=== PATIENT | male | born 1955 | race Caucasian/White ===

== ENCOUNTER 2016-09-12 11:31 | Emergency (ER) | payer MEDICARE, MEDICAID ==
--- NOTE | 2016-09-12 11:48 | ER Document Report ---
ED Medical Screen (RME) - General Stated Complaint: BOTTOM PAIN Notes: 60 yo male c/o pain to buttocks x 3 days. Pt is deaf, nonverbal. No fever - Related Data Allergies/Adverse Reactions: No Known Allergies Allergy (Verified 03/02/14 15:29) Past Medical History - Past Medical History Cardiac Medical History: Denies: Hx Coronary Artery Disease, Hx Heart Attack, Hx Hypertension Pulmonary Medical History: Reports: Hx Asthma, Hx Bronchitis - currently on meds diagnosed 10/24/13, Hx Pneumonia Denies: Hx COPD Neurological Medical History: Denies: Hx Cerebrovascular Accident, Hx Seizures Musculoskeltal Medical History: Denies Hx Arthritis Past Surgical History: Reports: Hx Orthopedic Surgery - neck, bulging disc - Immunizations Hx Diphtheria, Pertussis, Tetanus Vaccination: Yes
--- NOTE | 2016-09-12 12:29 | ER Document Report ---
ED General - General Chief Complaint: Rectal Pain Stated Complaint: BOTTOM PAIN TRAVEL OUTSIDE OF THE [place] IN LAST 30 DAYS: No - HPI Patient complains to provider of: rectal pain Onset: Other - 3 days Onset/Duration: Gradual Quality of pain: No pain Severity: None Associated symptoms: None Exacerbated by: Denies Relieved by: Denies Similar symptoms previously: No Recently seen / treated by doctor: No Notes: Patient is deaf. History of present illness was obtained by writing notes back and forth this states that he has a history of a mass removed from his anus with similar pain but has been hurting approximately 3 days ago. No trauma to the area. No fevers or chills no nausea vomiting or rectal bleeding - Related Data Allergies/Adverse Reactions: No Known Allergies Allergy (Verified 09/12/16 11:47) Past Medical History - Social History Smoking Status: Unknown if Ever Smoked Family History: Reviewed & Not Pertinent - Past Medical History Cardiac Medical History: Denies: Hx Coronary Artery Disease, Hx Heart Attack, Hx Hypertension Pulmonary Medical History: Reports: Hx Asthma, Hx Bronchitis - currently on meds diagnosed 10/24/13, Hx Pneumonia Denies: Hx COPD Neurological Medical History: Denies: Hx Cerebrovascular Accident, Hx Seizures Musculoskeltal Medical History: Denies Hx Arthritis Past Surgical History: Reports: Hx Orthopedic Surgery - neck, bulging disc - Immunizations Hx Diphtheria, Pertussis, Tetanus Vaccination: Yes Review of Systems - Review of Systems Constitutional: No symptoms reported EENT: No symptoms reported Cardiovascular: No symptoms reported Respiratory: No symptoms reported Gastrointestinal: Other - Buttocks pain Genitourinary: No symptoms reported Male Genitourinary: No symptoms reported Musculoskeletal: No symptoms reported Skin: No symptoms reported Hematologic/Lymphatic: No symptoms reported Neurological/Psychological: No symptoms reported Physical Exam - Vital signs Vitals: Temp Pulse Resp BP Pulse Ox 98.3 F 74 16 120/78 100 09/12/16 11:47 09/12/16 11:47 09/12/16 11:47 09/12/16 11:47 09/12/16 11:47 Interpretation: Normal - General General appearance: Appears well, Alert - HEENT Head: Normocephalic, Atraumatic Eyes: Normal Pupils: PERRL - Respiratory Respiratory status: No respiratory distress Chest status: Nontender Breath sounds: Normal Chest palpation: Normal - Cardiovascular Rhythm: Regular Heart sounds: Normal auscultation Murmur: No - Abdominal Inspection: Normal Distension: No distension Bowel sounds: Normal Tenderness: Nontender Organomegaly: No organomegaly - Rectal Hemorrhoids: External - No signs of thrombosis - Back Back: Normal, Nontender - Extremities General upper extremity: Normal inspection, Nontender, Normal color, Normal ROM , Normal temperature General lower extremity: Normal inspection, Nontender, Normal color, Normal ROM , Normal temperature, Normal weight bearing. No: Abbie's sign - Neurological Neuro grossly intact: Yes Cognition: Normal Orientation: AAOx4 Tawanda Coma Scale Eye Opening: Spontaneous Sultana Coma Scale Verbal: Oriented Tawanda Coma Scale Motor: Obeys Commands Sultana Coma Scale Total: 15 Speech: Normal Motor strength normal: LUE, RUE, LLE, RLE Sensory: Normal - Psychological Associated symptoms: Normal affect, Normal mood - Skin Skin Temperature: Warm Skin Moisture: Dry Skin Color: Normal Course - Re-evaluation Re-evalutation: 09/12/16 13:49 Patient with 2 external hemorrhoids more likely this is the cause of the patient 's pain. Otherwise examination is negative. Patient will be discharged home with cream and lidocaine. - Vital Signs Vital signs: Temp Pulse Resp BP Pulse Ox 98.3 F 74 16 120/78 100 09/12/16 11:47 09/12/16 11:47 09/12/16 11:47 09/12/16 11:47 09/12/16 11:47 Discharge - Discharge Clinical Impression: External hemorrhoid Condition: Good Disposition: HOME, SELF-CARE Instructions: Hemorrhoids ([facility]) Additional Instructions: Your examination is consistent with a painful hemorrhoid. Sometimes these require surgery. There is no need for any surgery today. We will treat your pain with hemorrhoid cream to help resolve the hemorrhoid, lidocaine cream to help numb up the hemorrhoid. It is also important that you have very soft stools so I am going to prescribe you a stool softener. Please apply cream as stated. If your pain is not getting better in the next 2- 3 days I recommend contacting the surgeon provided. You may also follow-up with her GI specialist Dr. Skinner for your hemorrhoids Prescriptions: Docusate Sodium [Colace 100 mg Capsule] 100 mg PO BID #60 capsule Hydrocortisone/Pramoxine [Analpram Hc 1% Cream] 30 gm RC TID #1 cream.appl Lidocaine [Recticare] 30 gm TP QID #1 cream..g. Referrals: XIN BOWDEN PA-C [Primary Care Provider] - Follow up in 3-5 days DANIKA JEAN BAPTISTE MD [ACTIVE STAFF] - Follow up as needed HUBERT SKINNER MD [ACTIVE STAFF] - Follow up as needed
[2016-09-12] MEDS ORDERED: PRAMOXINE HCL/MINERAL OIL/ZNOX OINT 28.3 GM PR ONE (12:53)
[2016-09-12] MEDS ORDERED: LIDOCAINE 2% URO-JET 5 ML KIT MM ONE (13:46)
[2016-09-12 14:25] VITALS: BP 121/79
== END 2016-09-12 14:24 | disposition home or self-care (01) ==
LOC: ER 11:31
DX: K64.4 Residual hemorrhoidal skin tags (principal); K62.89 Other specified diseases of anus and rectum; Z98.890 Other specified postprocedural states
CPT/HCPCS: 99283; A9270; J3490

== ENCOUNTER → 2018-06-06 | Outpatient (CLI) | payer MEDICARE, MEDICAID ==
[2018-06-06 12:43] LABS: ABSOLUTE BASOPHILS # (AUTO) 0.1 10^3/uL (0.0-0.2); ABSOLUTE EOSINOPHILS # (AUTO) 0.2 10^3/uL (0.0-0.6); ABSOLUTE LYMPHOCYTES (AUTO) 1.2 10^3/uL (0.5-4.7); ABSOLUTE MONOCYTES (AUTO) 0.5 10^3/uL (0.1-1.4); ABSOLUTE NEUT (AUTO) 4.2 10^3/uL (1.7-8.2); BASOPHILS % (AUTO) 0.9 % (0-2); EOSINOPHILS % (AUTO) 2.9 % (0-6); HEMATOCRIT 38.7 % (37.9-51.0); HEMOGLOBIN 13.2 g/dL (13.5-17.0); LYMPHOCYTES % (AUTO) 20.2 % (13-45); MEAN CORPUSCULAR HEMOGLOBIN 29.9 pg (27.0-33.4); MEAN CORPUSCULAR VOLUME 88 fl (80-97); MONOCYTES % (AUTO) 8.3 % (3-13); PLATELET COUNT 261 10^3/uL (150-450); RED CELL DISTRIBUTION WIDTH 12.8 % (11.5-14.0); SEGMENTED NEUTROPHILS % (AUTO) 67.7 % (42-78); TOTAL CELLS COUNTED % (AUTO) 100 %; WHITE BLOOD COUNT 6.1 10^3/uL (4.0-10.5)
[2018-06-06 13:07] LABS: ALANINE AMINOTRANSFERASE 25 U/L (21-72); ALBUMIN 3.9 g/dL (3.5-5.0); ALKALINE PHOSPHATASE 65 U/L (38-126); ASPARTATE AMINO TRANSFERASE 34 U/L (17-59); BILIRUBIN,DIRECT 0.4 mg/dL (0.0-0.4); BILIRUBIN,TOTAL 0.6 mg/dL (0.2-1.3); BLOOD UREA NITROGEN 19 mg/dL (7-20); C-REACTIVE PROTEIN 11.4 mg/L (<10.0); CALCIUM 9.2 mg/dL (8.4-10.2); CHLORIDE 100 mmol/L (98-107); GLUCOSE 96 mg/dL (75-110); POTASSIUM 4.7 mmol/L (3.6-5.0); TOTAL PROTEIN 7.1 g/dL (6.3-8.2)
[2018-06-06 13:10] LABS: ANION GAP 6 (5-19); CARBON DIOXIDE 34 mmol/L (22-30); SODIUM 139.7 mmol/L (137-145)
[2018-06-06 13:26] LABS: ERYTHROCYTE SEDIMENTATION RATE 37 mm/hr (0-20)
== END ==
LOC: OD 12:06
PROVIDERS: ATTEND Nurse Practitioner
DX: L97.222 Non-pressure chronic ulcer of left calf with fat layer exposed (principal)
CPT/HCPCS: 36415; 80053; 85025; 85652; 86140

== ENCOUNTER → 2018-06-08 | Outpatient (CLI) | payer MEDICARE, MEDICAID ==
--- NOTE | 2018-06-09 08:54 | XCELERA REPORT ---
[address] [address] Lower Extremity Venous Evaluation Procedure: A bilateral duplex scan of the lower extremity veins was performed. The evaluation included responses to compression and other maneuvers with patient in the supine and standing positions to assess venous insufficiency. Right Sided Venous Evaluation Common Femoral vein reflux: none. No other deep vein abnormality. Sapheno Femoral junction: no reflux. Femoral vein reflux: no reflux. Greater Saphenous vein, Proximal thigh: reflux: no reflux. Greater Saphenous vein, Distal thigh: reflux: no reflux. Greater Saphenous vein, Proximal below knee: reflux: no reflux. No significant Perforators identified. Left Sided Venous Evaluation Common Femoral vein reflux: none. No other deep vein abnormality. Sapheno Femoral junction: no reflux. Femoral vein reflux: no reflux. Greater Saphenous vein, Proximal thigh: reflux: no reflux. Greater Saphenous vein, Distal thigh: reflux: no reflux. Greater Saphenous vein, Proximal below knee: reflux: no reflux. No significant Perforators identified. Interpretation Summary No duplex evidence of DVT or obstruction in the bilateral lower extremities. No significant deep or superficial reflux identified. Name: LUCY REDDY Age: 62 yrs Gender: Male : 1955 Patient Status: Outpatient Patient Location: Study Date: 06/08/2018 10:51 AM Reason For Study: ULCER Ordering Physician: FRANTZ PEREZ Performed By: Elio Barry : FRANTZ PEREZ > Howard Jane
--- NOTE | 2018-06-09 08:57 | XCELERA REPORT ---
[address] [address] Lower Extremity Arterial Evaluation Name: LUCY REDDY Age: 62 yrs Gender: Male : 1955 Patient Status: Outpatient Patient Location: Study Date: 06/08/2018 10:31 AM Procedure: A color flow and duplex scan of the lower extremity arteries was performed bilaterally with velocity and waveform anaylsis. Reason For Study: ULCER Ordering Physician: FRANTZ PEREZ Performed By: Elio Barry Measurements and Calculations Right Left ER RN PSV 167.6 160.3 cm/sec Prox PFA PSV -124.3 -82.2 cm/sec Prox SFA PSV 103.7 148.5 cm/sec Mid SFA PSV -141.1 -135.5cm/sec Dist SFA PSV -123.6 -135.5cm/sec Prox Pop A PSV 95.4 95.4 cm/sec Dist CHAR PSV 79.9 111.9 cm/sec Mid AL[employer]IN[employer]SEMBLER PSV 121.9 cm/sec Dist ALUMINUM [employer]ATS ASSEMBLER PSV 106.4 cm/sec Mitul Pedis PSV 69.5 97.8 cm/sec Right Side Arterial Evaluation Normal velocity and triphasic waveforms noted from the Common Femoral artery to the infrageniculate vessels. 0 % stenosis . Ankle Brachial index was not done. Left Side Arterial Evaluation Normal velocity and triphasic waveforms noted from the Common Femoral artery to the infrageniculate vessels. 0 % stenosis . Ankle Brachial index was not done, due to bandaging. Interpretation Summary No hemodynamically significant lesions in the bilateral lower extremities, on duplex imaging, at rest. : FRANTZ PEREZ > Howard Jane
== END ==
LOC: SP 10:02
PROVIDERS: ATTEND Nurse Practitioner
DX: L97.222 Non-pressure chronic ulcer of left calf with fat layer exposed (principal)
CPT/HCPCS: 93925; 93970

== ENCOUNTER 2018-12-07 06:50 | Day surgery (SDC) | payer MEDICARE, MEDICAID ==
[~2018-12-07 06:50] MED LIST: KETOROLAC TROMETHAMINE 0.45% 4 DROP/0.4 ML DROPERETTE OS PRN
[2018-12-07] MEDS ORDERED: LIDOCAINE 1%/PHENYLEPHRINE 1.5% 1 ML VIAL ONE (06:53)
[2018-12-07] MEDS ORDERED: EPINEPHRINE INJ/PF 1 MG/1 ML AMPULE ONE (06:53)
[2018-12-07] MEDS ORDERED: CHONDR SU A NA/HYALUR INTRAOC KIT (SURGICARE) ONE (06:54)
[2018-12-07] MEDS: TROPICAMIDE 1% OPH SOLN 3 ML OS PRN ×3 (07:01→07:19)
[2018-12-07] MEDS: CYCLOPENTOLATE 0.2%/PHENYLEPHRINE 1% OPH SOLN 2 ML OS PRN ×3 (07:01→07:19)
[2018-12-07] MEDS: BESIFLOXACIN HCL 0.6% OPH SUSP 5 ML BOTTLE OS PRN ×4 (07:09→08:12)
[2018-12-07] MEDS: TETRACAINE HCL 0.5% OPH SOLN 4 ML OS PRN ×3 (07:09→07:30)
[2018-12-07] MEDS ORDERED: MIDAZOLAM 2 MG/2 ML INJ ONE (07:11)
[2018-12-07] MEDS ORDERED: LIDOCAINE 2% INJ (20 MG/ML) 20 ML MDV ONE (07:33)
[2018-12-07] MEDS ORDERED: CHONDR SU A NA/HYALUR SOD 0.5 ML DISP.SYRIN ONE (07:46)
[2018-12-07] MEDS: DORZOLAMIDE HCL 2%/TIMOLOL MALEAT 0.5% OPH SOLN 10 ML OS PRN ×2 (08:12)
--- NOTE | 2018-12-07 14:24 | [facility] OPERATIVE REPORT E ---
[facility] Operative Report NAME: LUCY REDDY AGE: 63Y DATE OF SURGERY: 12/07/2018 ROOM: PREOPERATIVE DIAGNOSIS: CATARACT, LEFT EYE. POSTOPERATIVE DIAGNOSIS: CATARACT, LEFT EYE. OPERATION: Cataract extraction with insertion of an IOL of the left eye. SURGEON: JOSE MRATINEZ M.D. ANESTHESIA: Topical. PROCEDURE: After obtaining appropriate consent, the patient's left eye was prepped and draped in sterile fashion as well as the surgeon in a sterile manner and cataract surgery was started. First a paracentesis blade was used to make a side-port incision. Viscoelastic was used to inflate the anterior chamber. Next a 2.4 mm incision was made with a 2.4 mm blade, clear corneal temporally. A continuous capsulorrhexis was made using a cystotome and Utrata forceps. Following this hydrodissection was carried out to make the lens fully loose and mobile and it was rotated 90 degrees. Following this, a iwnngg-vto-yckvkhb technique was used to phacoemulsify the lens with a CDE of 7.61. The remaining cortex was removed with irrigation/aspiration. Provisc was instilled into the capsular bag to inflate the bag. A [id number], 0.0 diopter lens was placed. The remaining viscoelastic material was removed with irrigation/aspiration. Following this, the incision was found to be watertight. Besivance was instilled into the eye and a protective shield was placed over the eye. The patient returned to the postoperative recovery in stable condition. DICTATING PHYSICIAN: JOSE MARTINEZ M.D. [id number] PHY#: [id number] ID: [id number] JOB#: [id number] ACCT: [id number] cc:JOSE MARTINEZ M.D. >
--- NOTE | 2018-12-07 14:29 | [facility] DISCHARGE SUMMARY E ---
[facility] Discharge Summary NAME: LUCY REDDY AGE: 63Y ADMITTED: 12/07/2018 DISCHARGED: 12/07/2018 FINAL DIAGNOSIS: CATARACT, LEFT EYE. HISTORY/CLINIC COURSE: This is a 63-year-old male who underwent cataract extraction of left eye. He underwent surgery because he was having increased glare from headlights at night and he had monocular diplopia. He should be on a regular diet. No bending at the waist, no heavy lifting. Patient should use the Vigamox, ketorolac, and Durezol at 3 p.m. and 8 p.m., and sleep with a rigid shield. I will see him for 1 day postoperative tomorrow. DICTATING PHYSICIAN: JOSE MARTINEZ M.D. [id number] PHY#: [id number] ID: [id number] JOB#: [id number] ACCT: [id number] cc:JOSE MARTINEZ M.D. > MTDD
== END 2018-12-07 09:04 | disposition home or self-care (01) ==
LOC: SC 06:50
PROVIDERS: ATTEND Internal Medicine
DX: H25.13 Age-related nuclear cataract, bilateral (principal); H18.603 Keratoconus, unspecified, bilateral; H04.123 Dry eye syndrome of bilateral lacrimal glands; K21.9 Gastro-esophageal reflux disease without esophagitis; Z79.899 Other long term (current) drug therapy
CPT/HCPCS: 66984; V2630; J2250; J3490 ×4; A9270; J0171; J2370; 142

== ENCOUNTER 2018-12-28 06:19 | Day surgery (SDC) | payer MEDICARE, MEDICAID ==
[~2018-12-28 06:19] MED LIST changes: +KETOROLAC TROMETHAMINE 0.45% 4 DROP/0.4 ML DROPERETTE OD PRN; -KETOROLAC TROMETHAMINE 0.45% 4 DROP/0.4 ML DROPERETTE OS PRN
[2018-12-28] MEDS ORDERED: MIDAZOLAM 2 MG/2 ML INJ ONE (06:40)
[2018-12-28] MEDS: TROPICAMIDE 1% OPH SOLN 3 ML OD PRN ×3 (06:50→07:10)
[2018-12-28] MEDS: CYCLOPENTOLATE 0.2%/PHENYLEPHRINE 1% OPH SOLN 2 ML OD PRN ×3 (06:50→07:10)
[2018-12-28] MEDS: TETRACAINE HCL 0.5% OPH SOLN 4 ML OD PRN ×4 (06:50→07:33)
[2018-12-28] MEDS: BESIFLOXACIN HCL 0.6% OPH SUSP 5 ML BOTTLE OD PRN ×4 (06:51→07:57)
[2018-12-28] MEDS: EPINEPHRINE INJ/PF 1 MG/1 ML AMPULE ONE ×2 (07:41)
[2018-12-28] MEDS: CHONDR SU A NA/HYALUR INTRAOC KIT (SURGICARE) ONE ×2 (07:41)
[2018-12-28] MEDS: LIDOCAINE 1%/PHENYLEPHRINE 1.5% 1 ML VIAL ONE ×2 (07:41)
[2018-12-28] MEDS: DORZOLAMIDE HCL 2%/TIMOLOL MALEAT 0.5% OPH SOLN 10 ML OD PRN ×2 (07:57)
--- NOTE | 2018-12-29 08:40 | [facility] DISCHARGE SUMMARY E ---
[facility] Discharge Summary NAME: LUCY REDDY AGE: 63Y ADMITTED: 12/28/2018 DISCHARGED: 12/28/2018 DIAGNOSIS: CATARACT, RIGHT EYE. SUMMARY: This is a 63-year-old male who underwent cataract extraction, right eye. He underwent surgery because he was having trouble seeing small print and glare from headlights at night. DISCHARGE INSTRUCTIONS: He should be on a regular diet, no bending at his waist, and no heavy lifting. He should use Durezol, Ilevro, and Vigamox at 3 p.m. and 8 p.m. and sleep with a rigid shield. I will see him for his 1-day postoperative tomorrow. DICTATING PHYSICIAN: JOSE MARTINEZ M.D. [id number] PHY#: [id number] ID: [id number] JOB#: [id number] ACCT: [id number] cc:JOSE MARTINEZ M.D. >
--- NOTE | 2018-12-29 08:40 | [facility] OPERATIVE REPORT E ---
[facility] Operative Report NAME: LUCY REDDY AGE: 63Y DATE OF SURGERY: 12/28/2018 ROOM: PREOPERATIVE DIAGNOSIS: CATARACT, RIGHT EYE. POSTOPERATIVE DIAGNOSIS: CATARACT, RIGHT EYE. OPERATION: Cataract extraction with insertion of an IOL of the right eye. SURGEON: JOSE MARTINEZ M.D. ANESTHESIA: Topical. PROCEDURE: After obtaining appropriate consent, the patient's right eye was prepped and draped in sterile fashion as well as the surgeon in a sterile manner and cataract surgery was started. First a paracentesis blade was used to make a side-port incision. Viscoelastic was used to inflate the anterior chamber. Next a 2.4 mm incision was made with a 2.4 mm blade, clear corneal temporally. A continuous capsulorrhexis was made using a cystotome and Utrata forceps. Following this hydrodissection was carried out to make the lens fully loose and mobile and it was rotated 90 degrees. Following this, a vhvgca-xrq-lwvsvcl technique was used to phacoemulsify the lens with a CDE of 6.25. The remaining cortex was removed with irrigation/aspiration. Provisc was instilled into the capsular bag to inflate the bag. A SN60WF, 13.0 diopter lens was placed. The remaining viscoelastic material was removed with irrigation/aspiration. Following this, the incision was found to be watertight. Besivance was instilled into the eye and a protective shield was placed over the eye. The patient returned to the postoperative recovery in stable condition. DICTATING PHYSICIAN: JOSE MARTINEZ M.D. [id number] PHY#: [id number] ID: [id number] JOB#: [id number] ACCT: [id number] cc:JOSE MARTINEZ M.D. >
== END 2018-12-28 08:40 | disposition home or self-care (01) ==
LOC: SC 06:19
PROVIDERS: ATTEND Internal Medicine
DX: H25.11 Age-related nuclear cataract, right eye (principal); Z96.1 Presence of intraocular lens; H18.603 Keratoconus, unspecified, bilateral; K21.9 Gastro-esophageal reflux disease without esophagitis; Z79.899 Other long term (current) drug therapy; Z75.1 Person awaiting admission to adequate facility elsewhere
CPT/HCPCS: 66984; V2632; J2250; J3490 ×2; A9270; J0171; J2370; 142

== ENCOUNTER 2019-01-24 19:27 | Emergency (ER) | payer MEDICARE, MEDICAID ==
--- NOTE | 2019-01-24 20:23 | ER Document Report ---
ED Medical Screen (RME) - General Chief Complaint: Abdominal Pain Stated Complaint: ABDOMINAL PAIN Time Seen by Provider: 01/24/19 20:21 Primary Care Provider: ANG CHAPMAN PA-C [Primary Care Provider] - Follow up as needed Mode of Arrival: Ambulatory Information source: Patient, Relative TRAVEL OUTSIDE OF THE [place] IN LAST 30 DAYS: No - HPI Patient complains to provider of: ABDO PAIN Notes: 01/24/19 20:22 Patient here with complaints of abdominal pain. Pain started on the right and is now on the left lower quadrant. Seen in urgent care and sent here for evaluation. Family member at the bedside to facilitate communication via sign language. Exam No distress, nontoxic-appearing. Left lower quadrant tenderness to palpation on limited triage abdominal exam. Plan CBC, CMP, lipase, urine, saline lock, CT abdomen pelvis with IV contrast. An initial examination was made on the patient as part of the triage process, and it was determined a more comprehensive evaluation was necessary. Initial labs were ordered and patient was transferred to another provider in the ED who assumed care and finished evaluation and plan. - Related Data Allergies/Adverse Reactions: No Known Allergies Allergy (Verified 12/27/18 09:06) Past Medical History - Past Medical History Cardiac Medical History: Denies: Hx Coronary Artery Disease, Hx Heart Attack, Hx Hypertension Pulmonary Medical History: Reports: Hx Asthma, Hx Bronchitis - currently on meds diagnosed 10/24/13, Hx Pneumonia Denies: Hx COPD Neurological Medical History: Denies: Hx Cerebrovascular Accident, Hx Seizures GI Medical History: Denies: Hx Hepatitis, Hx Hiatal Hernia, Hx Ulcer Musculoskeltal Medical History: Denies Hx Arthritis Infectious Medical History: Denies: Hx Hepatitis Past Surgical History: Reports: Hx Orthopedic Surgery - neck, bulging disc. Denies: Hx Open Heart Surgery, Hx Pacemaker - Immunizations Hx Diphtheria, Pertussis, Tetanus Vaccination: Yes Physical Exam - Vital signs Vitals: Temp Pulse Resp BP Pulse Ox 98.3 F 79 20 131/77 H 94 01/24/19 20:01 01/24/19 20:01 01/24/19 20:01 01/24/19 20:01 01/24/19 20:01 Course - Vital Signs Vital signs: Temp Pulse Resp BP Pulse Ox 98.3 F 79 20 131/77 H 94 01/24/19 20:01 01/24/19 20:01 01/24/19 20:01 01/24/19 20:01 01/24/19 20:01 Doctor's Discharge - Discharge Referrals: ANG CHAPMAN PA-C [Primary Care Provider] - Follow up as needed
[2019-01-24 21:53] LABS: ABSOLUTE EOSINOPHILS # (AUTO) 0.2 10^3/uL (0.0-0.6); ABSOLUTE LYMPHOCYTES (AUTO) 1.3 10^3/uL (0.5-4.7); ABSOLUTE MONOCYTES (AUTO) 0.8 10^3/uL (0.1-1.4); ABSOLUTE NEUT (AUTO) 4.8 10^3/uL (1.7-8.2); BASOPHILS % (AUTO) 0.5 % (0-2); EOSINOPHILS % (AUTO) 3.4 % (0-6); HEMATOCRIT 40.2 % (37.9-51.0); HEMOGLOBIN 13.5 g/dL (13.5-17.0); LYMPHOCYTES % (AUTO) 18.7 % (13-45); MEAN CORPUSCULAR HEMOGLOBIN 30.2 pg (27.0-33.4); MEAN CORPUSCULAR HGB CONC 33.6 g/dL (32.0-36.0); MEAN CORPUSCULAR VOLUME 90 fl (80-97); MONOCYTES % (AUTO) 11.4 % (3-13); PLATELET COUNT 284 10^3/uL (150-450); RED BLOOD COUNT 4.48 10^6/uL (4.35-5.55); RED CELL DISTRIBUTION WIDTH 12.8 % (11.5-14.0); TOTAL CELLS COUNTED % (AUTO) 100 %; WHITE BLOOD COUNT 7.2 10^3/uL (4.0-10.5)
[2019-01-24 22:13] LABS: ALANINE AMINOTRANSFERASE 24 U/L (21-72); ALKALINE PHOSPHATASE 92 U/L (38-126); ANION GAP 8 (5-19); ASPARTATE AMINO TRANSFERASE 36 U/L (17-59); BILIRUBIN,DIRECT 0.4 mg/dL (0.0-0.4); BILIRUBIN,TOTAL 0.7 mg/dL (0.2-1.3); BLOOD UREA NITROGEN 20 mg/dL (7-20); CALCIUM 9.4 mg/dL (8.4-10.2); CARBON DIOXIDE 35 mmol/L (22-30); CHLORIDE 100 mmol/L (98-107); GLUCOSE 112 mg/dL (75-110); LIPASE 167.7 U/L (23-300); SODIUM 142.7 mmol/L (137-145); TOTAL PROTEIN 7.2 g/dL (6.3-8.2)
[2019-01-25 00:54] LABS: APPEARANCE,URINE SLIGHTLY-CLOUDY; BILIRUBIN,URINE NEGATIVE (NEGATIVE); COLOR,URINE AMBER; GLUCOSE, URINE NEGATIVE (NEGATIVE); KETONES,URINE NEGATIVE (NEGATIVE); LEUKOCYTE ESTERASE,URINE NEGATIVE (NEGATIVE); NITRITE,URINE NEGATIVE (NEGATIVE); PROTEIN,URINE NEGATIVE (NEGATIVE); URINE SPECIFIC GRAVITY 1.031
--- NOTE | 2019-01-25 01:09 | RADIOLOGY REPORT (SQ) ---
CT ABDOMEN PELVIS WITH IV CONTRAST HISTORY: Left lower quadrant pain. COMPARISON: None. TECHNIQUE: CT scan of the abdomen and pelvis was performed with IV contrast. This exam was performed according to our departmental dose-optimization program, which includes automated exposure control, adjustment of the mA and/or kV according to patient size and/or use of iterative reconstruction technique. Motion artifact limits evaluation. FINDINGS: The lung bases are clear. No pleural or pericardial effusions. There is no hiatal hernia. The liver, spleen, pancreas, gallbladder, adrenal glands, and kidneys are unremarkable. No urinary stones are seen. The pelvic organs are also unremarkable. No small bowel obstruction. The appendix is normal. There is no evidence of diverticulitis. No intraperitoneal free fluid or free air is identified. The aorta is normal caliber. No acute osseous findings are appreciated. There is no pathologic body wall hernia. IMPRESSION: 1. No acute abdominal or pelvic pathology. 2. Please note the gallbladder is contracted which limits evaluation. Consider gallbladder ultrasound if there is high clinical concern.
[2019-01-25] MEDS ORDERED: NORMAL SALINE 1000 ML 1,000 ML IV ONE (02:01)
[2019-01-25] MEDS ORDERED: ONDANSETRON HCL INJ/PF 4 MG/2 ML SDV IV ONE (02:01)
[2019-01-25] MEDS ORDERED: KETOROLAC TROMETHAMINE INJ/PF 30 MG/1 ML SDV IV ONE (02:01)
[2019-01-25 03:18] VITALS: BP 112/71
--- NOTE | 2019-01-25 03:24 | ER Document Report ---
ED GI/ - General Chief Complaint: Abdominal Pain Stated Complaint: ABDOMINAL PAIN Time Seen by Provider: 01/24/19 20:21 Primary Care Provider: ANG CHAPMAN PA-C [Primary Care Provider] - Follow up as needed Mode of Arrival: Ambulatory Notes: Patient is a 63 year old male that comes to the Emergency Department for chief complaint of left lower quadrant abdominal pain. He states he has had this intermittently for about 1 week now. He denies vomiting, nausea, fever, difficulty eating, and he had a bowel movement that appeared normal about 15 minutes before I evaluated the patient. He he denies any abdominal surgeries. He denies dysuria, flank pain. Past medical history of CAD with stent, orthopedic surgery, asthma, deafness, cerebral palsy. TRAVEL OUTSIDE OF THE [place] IN LAST 30 DAYS: No - Related Data Allergies/Adverse Reactions: No Known Allergies Allergy (Verified 12/27/18 09:06) Past Medical History - General Information source: Patient, Relative - Social History Smoking Status: Never Smoker Frequency of alcohol use: Occasional Drug Abuse: None Lives with: Family Family History: Reviewed & Not Pertinent Patient has suicidal ideation: No Patient has homicidal ideation: No - Past Medical History Cardiac Medical History: Denies: Hx Coronary Artery Disease, Hx Heart Attack, Hx Hypertension Pulmonary Medical History: Reports: Hx Asthma, Hx Bronchitis - currently on meds diagnosed 10/24/13, Hx Pneumonia Denies: Hx COPD Neurological Medical History: Denies: Hx Cerebrovascular Accident, Hx Seizures Renal/ Medical History: Denies: Hx Peritoneal Dialysis GI Medical History: Denies: Hx Hepatitis, Hx Hiatal Hernia, Hx Ulcer Musculoskeletal Medical History: Denies Hx Arthritis Infectious Medical History: Denies: Hx Hepatitis Past Surgical History: Reports: Hx Cardiac Catheterization - stent, Hx Neurologic Surgery - cervical surgery, Hx Orthopedic Surgery - neck, bulging disc. Denies: Hx Open Heart Surgery, Hx Pacemaker - Immunizations Hx Diphtheria, Pertussis, Tetanus Vaccination: Yes Review of Systems - Review of Systems Constitutional: No symptoms reported EENT: No symptoms reported Cardiovascular: No symptoms reported Respiratory: No symptoms reported Gastrointestinal: See HPI Genitourinary: No symptoms reported Male Genitourinary: No symptoms reported Musculoskeletal: No symptoms reported Skin: No symptoms reported Hematologic/Lymphatic: No symptoms reported Neurological/Psychological: No symptoms reported Physical Exam - Vital signs Vitals: Temp Pulse Resp BP Pulse Ox 98.3 F 79 20 131/77 H 94 01/24/19 20:01 01/24/19 20:01 01/24/19 20:01 01/24/19 20:01 01/24/19 20:01 - Notes Notes: GENERAL: Sleeping and easily aroused. Alert, interacts well. No acute distress. HEAD: Normocephalic, atraumatic. EYES: Pupils equal, round, and reactive to light. Extraocular movements intact. ENT: Oral mucosa moist, tongue midline. Oropharynx unremarkable. Airway patent. NECK: Full range of motion. Supple. Trachea midline. LUNGS: Clear to auscultation bilaterally, no wheezes, rales, or rhonchi. No respiratory distress. HEART: Regular rate and rhythm. No murmur ABDOMEN: Mild generalized tenderness in the left mid to lower abdomen, nonspecific, no guarding. Otherwise unremarkable exam. Bowel movements present in all quadrants. GENITOURINARY: No swelling, erythema, tenderness, or concerning a normality. EXTREMITIES: Moves all 4 extremities spontaneously. No edema, normal radial and dorsalis pedis pulses bilaterally. No cyanosis. BACK: no cervical, thoracic, lumbar midline tenderness. No saddle anesthesia, normal distal neurovascular exam. NEUROLOGICAL: Alert and oriented x3. Normal speech. Generalized jerking mov ements which is reported to be patient's baseline with cerebral palsy. PSYCH: Normal affect, normal mood. SKIN: Warm, dry, normal turgor. No rashes or lesions noted. Course - Re-evaluation Re-evalutation: Patient sleeping but easily aroused. He does have some mild left lower quadrant tenderness on exam, no guarding, he is smiling, talkative, well-appearing. Unremarkable vital signs. CBC, chemistry, urinalysis reviewed and show some dehydration with elevated specific gravity, but otherwise this is nonspecific. CAT scan of the abdomen/pelvis with IV contrast was reviewed and shows no concerning acute abnormality. Gallbladder contracted on the CAT scan but patient has no right upper quadrant or even generalized upper abdominal tenderness. There does appear to be a lot of stool in the lower part of the colon. Patient is still moving his bowels however. Patient still reporting some intermittent discomfort. After IV fluids, nausea medication, Toradol, patient symptoms completely resolved. He states he feels great. Does not appear to be diverticulitis, abscess, or acute abdomen based on his evaluation. Patient will be treated with stool softener, symptom management, discussed follow-up and return precautions in detail, patient and state satisfaction and agreement with plan. - Vital Signs Vital signs: Temp Pulse Resp BP Pulse Ox 97.9 F 67 16 112/71 96 01/25/19 03:16 01/25/19 03:16 01/25/19 03:16 01/25/19 03:16 01/25/19 03:16 - Laboratory Result Diagrams: 01/24/19 21:25 01/24/19 21:25 Laboratory results interpreted by me: 01/24/19 01/25/19 21:25 00:28 Carbon Dioxide 35 H Glucose 112 H Urine Urobilinogen 4.0 H Discharge - Discharge Clinical Impression: Dehydration Abdominal pain Qualifiers: Abdominal location: generalized Qualified Code(s): R10.84 - Generalized abdominal pain Condition: Stable Disposition: HOME, SELF-CARE Additional Instructions: Your tests here indicate dehydration and some constipation, but no other concerning findings were seen today. Take the colace stool softener for the next several days, the Zofran if needed for nausea, and the Bentyl if needed for abdominal pain. Increase drinking fluids, increase fiber in your diet. Follow up with your primary care. Come back if you are worse (if your pain in your abdomen comes back or is worse, you get a fever, you start vomiting, or if something else is not right). Prescriptions: Dicyclomine HCl [Bentyl 20 mg Tablet] 20 mg PO QID PRN #20 tablet PRN Reason: Docusate Sodium [Colace 100 mg Capsule] 100 mg PO ASDIR PRN #30 capsule PRN Reason: Ondansetron [Zofran Odt 4 mg Tablet] 1 - 2 tab PO Q4H PRN #15 tab.rapdis PRN Reason: For Nausea/Vomiting Referrals: ANG CHAPMAN PA-C [Primary Care Provider] - Follow up as needed
== END 2019-01-25 03:30 | disposition home or self-care (01) ==
LOC: ER 19:27
DX: E86.0 Dehydration (principal); R10.32 Left lower quadrant pain; R10.84 Generalized abdominal pain
CPT/HCPCS: 99284; 96361; 96374; 96375; 36415; 83690; 85025; 80053; 81001; 74177; J1885; J2405; J7030

== ENCOUNTER 2019-06-07 23:36 | Emergency (ER) | payer MEDICARE, MEDICAID ==
--- NOTE | 2019-06-07 23:56 | ER Document Report ---
ED Medical Screen (RME) - General Stated Complaint: FALL,LACERATION IN HEAD Time Seen by Provider: 06/07/19 23:44 Primary Care Provider: ANG CHAPMAN PA-C [Primary Care Provider] - Follow up as needed Mode of Arrival: Ambulatory Information source: Patient, Relative - Notes: Patient is a 63-year-old deaf male presenting with a laceration and head injury. Patient's states that he fell out of the bed at approximately 1 AM which was approximately 24 hours ago and hit his head on some type of a hard object. She denies him passing out or losing consciousness, she denies any vomiting. He is in need of a tetanus shot. Allegedly he went to an urgent care in [place] who directed him to come to the emergency department for imaging. Exam: Laceration noted to right forehead area with ecchymosis surrounding this. I have greeted and performed a rapid initial assessment of this patient. A comprehensive ED assessment and evaluation of the patient, analysis of test results and completion of the medical decision making process will be conducted by additional ED providers. I have specifically instructed the patient or family members with the patient to immediately return to any nursing staff should anything change in the patient's condition or with their chief complaint. This medical record was dictated with voice recognizing software. There may be grammatical, syntax errors that are unintended. TRAVEL OUTSIDE OF THE [place] IN LAST 30 DAYS: No - Related Data Allergies/Adverse Reactions: No Known Allergies Allergy (Verified 12/27/18 09:06) Past Medical History - Past Medical History Cardiac Medical History: Denies: Hx Coronary Artery Disease, Hx Heart Attack, Hx Hypertension Pulmonary Medical History: Reports: Hx Asthma, Hx Bronchitis - currently on meds diagnosed 10/24/13, Hx Pneumonia Denies: Hx COPD Neurological Medical History: Denies: Hx Cerebrovascular Accident, Hx Seizures Renal/ Medical History: Denies: Hx Peritoneal Dialysis GI Medical History: Denies: Hx Hepatitis, Hx Hiatal Hernia, Hx Ulcer Musculoskeltal Medical History: Denies Hx Arthritis Infectious Medical History: Denies: Hx Hepatitis Past Surgical History: Reports: Hx Cardiac Catheterization - stent, Hx Neurologic Surgery - cervical surgery, Hx Orthopedic Surgery - neck, bulging disc. Denies: Hx Open Heart Surgery, Hx Pacemaker - Immunizations Hx Diphtheria, Pertussis, Tetanus Vaccination: Yes Physical Exam - Vital signs Vitals: Temp Pulse Resp BP Pulse Ox 98.2 F 65 20 130/70 H 95 06/07/19 23:39 06/07/19 23:39 06/07/19 23:39 06/07/19 23:39 06/07/19 23:39 Course - Vital Signs Vital signs: Temp Pulse Resp BP Pulse Ox 98.2 F 65 20 130/70 H 95 06/07/19 23:39 06/07/19 23:39 06/07/19 23:39 06/07/19 23:39 06/07/19 23:39 Doctor's Discharge - Discharge Referrals: ANG CHAPMAN PA-C [Primary Care Provider] - Follow up as needed
--- NOTE | 2019-06-08 00:58 | RADIOLOGY REPORT (SQ) ---
EXAM DESCRIPTION: CT HEAD WITHOUT IV CONTRAST COMPLETED DATE/TME: 06/07/2019 23:52 CLINICAL HISTORY: 63 years, Male, fall, laceration above R eye COMPARISON: None. TECHNIQUE: 208 Images stored on PACS. All CT scanners at this facility use dose modulation, iterative reconstruction, and/or weight based dosing when appropriate to reduce radiation dose to as low as reasonably achievable (ALARA). [facility]: Dose Right [facility]: CareDose [facility]: Dose Right [facility]: Teradose 4D [facility]: [employer] LIMITATIONS: None. FINDINGS: The globes are intact. The paranasal sinuses and mastoid air cells are unremarkable. No displaced or depressed skull fracture. Small right frontal scalp contusion. No acute intracranial hemorrhage. CT is limited for evaluation of acute infarct. No CT evidence for large or territorial acute infarct. No mass. No midline shift IMPRESSION: Small right frontal scalp contusion. No acute intracranial abnormality TECHNICAL DOCUMENTATION: Quality ID # 436: Final reports with documentation of one or more dose reduction techniques (e.g., Automated exposure control, adjustment of the mA and/or kV according to patient size, use of iterative reconstruction technique) copyright 2010 [employer] All Rights Reserved
[2019-06-08] MEDS ORDERED: ACETAMINOPHEN 325 MG TABLET PO ONE (02:33)
[2019-06-08] MEDS ORDERED: DIPH/PERTUSS(ACELL)/TETANUS VAC/PF 0.5 ML SYR (>=10YO) IM ONE (02:33)
--- NOTE | 2019-06-08 02:43 | ER Document Report ---
ED Fall - General Chief Complaint: Fall Injury Stated Complaint: FALL,LACERATION IN HEAD Time Seen by Provider: 06/07/19 23:44 Primary Care Provider: ANG CHAPMAN PA-C [Primary Care Provider] - Follow up as needed Mode of Arrival: Ambulatory Information source: Patient, Relative - Notes: Patient is a 63-year-old deaf male presenting with a laceration and head injury. Patient's states that he fell out of the bed at approximately 1 AM which was approximately 24 hours ago and hit his head on some type of a hard object. She denies him passing out or losing consciousness, she denies any vomiting. He is in need of a tetanus shot. Allegedly he went to an urgent care in [place] who directed him to come to the emergency department for imaging. I have used [employer] fiber design engineer to discuss patient's HPI. Upon my assessment patient states he has some minor pain in the right side of his head but otherwise has no complaints. Patient voices he accidentally rolled out of bed. Feels he thinks he had a nightmare. Patient did hit the right side of his head on the ground, is denying any loss of consciousness or vomiting. Does have a hematoma with a small abrasion noted to the right forehead. No pain upon palpation right supraorbital or zygomatic arches. Extraocular motion intact and painless. TRAVEL OUTSIDE OF THE [place] IN LAST 30 DAYS: No - Related data Allergies/Adverse Reactions: No Known Allergies Allergy (Verified 12/27/18 09:06) Past Medical History - General Information source: Patient, Relative - - Social History Smoking Status: Never Smoker Chew tobacco use (# tins/day): No Frequency of alcohol use: Occasional Drug Abuse: None Family History: Reviewed & Not Pertinent Patient has suicidal ideation: No Patient has homicidal ideation: No - Past Medical History Cardiac Medical History: Denies: Hx Coronary Artery Disease, Hx Heart Attack, Hx Hypertension Pulmonary Medical History: Reports: Hx Asthma, Hx Bronchitis - currently on meds diagnosed 10/24/13, Hx Pneumonia Denies: Hx COPD Neurological Medical History: Denies: Hx Cerebrovascular Accident, Hx Seizures Renal/ Medical History: Denies: Hx Peritoneal Dialysis GI Medical History: Denies: Hx Hepatitis, Hx Hiatal Hernia, Hx Ulcer Musculoskeletal Medical History: Denies Hx Arthritis Infectious Medical History: Denies: Hx Hepatitis Past Surgical History: Reports: Hx Cardiac Catheterization - stent, Hx Neurologic Surgery - cervical surgery, Hx Orthopedic Surgery - neck, bulging disc. Denies: Hx Open Heart Surgery, Hx Pacemaker - Immunizations Hx Diphtheria, Pertussis, Tetanus Vaccination: Yes Review of Systems - Review of Systems Constitutional: denies: Fever EENT: See HPI Cardiovascular: No symptoms reported Respiratory: No symptoms reported Gastrointestinal: No symptoms reported Genitourinary: No symptoms reported Male Genitourinary: No symptoms reported Musculoskeletal: No symptoms reported Skin: See HPI Hematologic/Lymphatic: No symptoms reported Neurological/Psychological: See HPI Physical Exam - Vital signs Vitals: Temp Pulse Resp BP Pulse Ox 98.2 F 65 20 130/70 H 95 06/07/19 23:39 06/07/19 23:39 06/07/19 23:39 06/07/19 23:39 06/07/19 23:39 - Notes Notes: GENERAL: Alert, interacts well. No acute distress. HEAD: Normocephalic, hematoma noted right forehead, overlying abrasion. EYES: Pupils equal, round, and reactive to light. Extraocular movements intact. ENT: Oral mucosa moist, tongue midline. Nares patent, no nasal septal hematoma, TM's intact, no hemotympanum noted bilaterally. NECK: Full range of motion. Supple. Trachea midline. LUNGS: Clear to auscultation bilaterally, no wheezes, rales, or rhonchi. No respiratory distress. HEART: Regular rate and rhythm. No murmur ABDOMEN: Soft, non-tender. Non-distended. Bowel sounds present in all 4 quadrants. EXTREMITIES: Moves all 4 extremities spontaneously. No edema, normal radial and dorsalis pedis pulses bilaterally. No cyanosis. BACK: no cervical, thoracic, lumbar midline tenderness. No saddle anesthesia, normal distal neurovascular exam. NEUROLOGICAL: Alert and oriented x3. cranial nerves II through XII grossly intact PSYCH: Normal affect, normal mood. SKIN: Warm, dry, normal turgor. Course - Re-evaluation Re-evalutation: 06/08/19 02:[address] 06/07/19 23:52 IMPRESSION: Small right frontal scalp contusion. No acute intracranial abnormality TECHNICAL DOCUMENTATION: Quality ID # 436: Final reports with documentation of one or more dose reduction techniques (e.g., Automated exposure control, adjustment of the mA and/or kV according to patient size, use of iterative reconstruction technique) copyright 2010 [employer]- All Rights Reserved Patient voices his tetanus status is unknown. Discussed close follow-up with primary care provider. Nonsuturable abrasion overlying hematoma noted right forehead. Patient stable for discharge At this time will discharge with return precautions and follow-up recommendations. Verbal discharge instructions given a the bedside and opportunity for questions given. Medication warnings reviewed. Patient is in agreement with this plan and has verbalized understanding of return precautions and the need for primary care follow-up in the next 24-72 hours. This medical record was dictated with voice recognizing software. There may be grammatical, syntax errors that are unintended. - Vital Signs Vital signs: Temp Pulse Resp BP Pulse Ox 97.9 F 57 L 19 128/73 H 94 06/08/19 03:12 06/08/19 03:12 06/08/19 03:12 06/08/19 03:12 06/08/19 03:12 Discharge - Discharge Clinical Impression: Abrasion, Hematoma Fall Qualifiers: Encounter type: initial encounter Qualified Code(s): W19.XXXA - Unspecified fall, initial encounter Condition: Stable Disposition: HOME, SELF-CARE Instructions: Scalp Hematoma ([facility]) Additional Instructions: As we discussed you have been seen and treated in the emergency department after a fall. Please keep your wound clean with soap and water. You can place [id number] bacitracin on it for antibiotic ointment. Please be aware that the bruising may settle into your right eye. This is normal, this is gravity. Please follow-up with your primary care provider in the next 24 to 48 hours. Return to the emergency room for any concerns. Referrals: ANG CHAPMAN PA-C [Primary Care Provider] - Follow up as needed
[2019-06-08 03:13] VITALS: BP 128/73
== END 2019-06-08 03:14 | disposition home or self-care (01) ==
LOC: ER 23:36
DX: S00.91XA Abrasion of unspecified part of head, initial encounter (principal); S00.03XA Contusion of scalp, initial encounter; W06.XXXA Fall from bed, initial encounter; Y92.009 Unspecified place in unspecified non-institutional (private) residence as the place of occurrence of the external cause; Z23 Encounter for immunization
CPT/HCPCS: 70450; 90715; A9270

== ENCOUNTER → 2020-01-11 | Outpatient (CLI) | payer MEDICAID, MEDICARE ==
--- NOTE | 2020-01-11 19:08 | RADIOLOGY REPORT (SQ) ---
EXAM DESCRIPTION: CT ABD/PELVIS WITH IV ORAL IMAGES COMPLETED DATE/TIME: 01/11/2020 6:50 pm REASON FOR STUDY: R10.31 RIGHT LOWER QUADRANT PAIN R10.31 RIGHT LOWER QUADRANT PAIN COMPARISON: None. TECHNIQUE: CT scan of the abdomen and pelvis performed using helical scanning technique with dynamic intravenous contrast injection. With oral contrast. Images reviewed with lung, soft tissue, and bon e windows. Reconstructed coronal and sagittal MPR images reviewed. Delayed images for evaluation of t he urinary system also acquired. All images stored on PACS. All CT scanners at this facility use dose modulation, iterative reconstruction, and/or weight based d osing when appropriate to reduce radiation dose to as low as reasonably achievable (ALARA). [facility]: Dose Right [facility]: CareDose [facility]: Dose Right [facility]: Teradose 4D [facility]: [employer] CONTRAST TYPE AND DOSE: contrast/concentration: Isovue 350.00 mg/ml; Total Contrast Delivered: 90.0 ml; Total Saline Delivered: 37.5 ml RENAL FUNCTION: GFR > 60. RADIATION DOSE: CT Rad equipment meets quality standard of care and radiation dose reduction techniq ues were employed. CTDIvol: 5.2 - 5.2 mGy. DLP: 585 mGy-cm.. LIMITATIONS: None. FINDINGS: LOWER CHEST: No significant findings. No nodules or infiltrates. LIVER: Normal size. No masses. No dilated ducts. SPLEEN: Normal size. No focal lesions. PANCREAS: No masses. No significant calcifications. No adjacent inflammation or peripancreatic fluid collections. Pancreatic duct not dilated. GALLBLADDER: No identified stones by CT criteria. No inflammatory changes to suggest cholecystitis. ADRENAL GLANDS: No significant masses or asymmetry. RIGHT KIDNEY AND URETER: No solid masses. No significant calcifications. No hydronephrosis or hyd roureter. LEFT KIDNEY AND URETER: No solid masses. No significant calcifications. No hydronephrosis or hydr oureter. AORTA AND VESSELS: No aneurysm. No dissection. Renal arteries, SMA, celiac without stenosis. RETROPERITONEUM: No retroperitoneal adenopathy, hemorrhage or masses. BOWEL AND PERITONEAL CAVITY: No masses or inflammatory changes. No free fluid or peritoneal masses. APPENDIX: Normal. PELVIS: No mass. No free fluid. Normal bladder. ABDOMINAL WALL: No masses. No hernias. BONES: No significant or acute findings. OTHER: No other significant finding. IMPRESSION: NO SIGNIFICANT OR ACUTE FINDING IN THE ABDOMEN OR PELVIS ON CT SCAN WITH IV CONTRAST. TECHNICAL DOCUMENTATION: JOB ID: [id number] Quality ID # 436: Final reports with documentation of one or more dose reduction techniques (e.g., Au tomated exposure control, adjustment of the mA and/or kV according to patient size, use of iterative reconstruction technique) 2010 [employer]- All Rights Reserved Reading location - IP/workstation name: [email or web address]
== END ==
LOC: RAD 14:39
PROVIDERS: ATTEND Physician Assistant
DX: R10.31 Right lower quadrant pain (principal)
CPT/HCPCS: 74177; 82565

== ENCOUNTER 2020-03-21 13:35 | Day surgery (SDC) | payer MEDICARE, MEDICAID ==
[2020-03-21] MEDS ORDERED: PROPOFOL INJ 200 MG/20 ML VIAL IV ONE (13:54)
--- NOTE | 2020-03-21 15:43 | Operative Report ---
Operative Report DATE OF SURGERY: 03/21/20 Operative Report: Pre-op diagnosis: Abdominal pain and colon cancer screening Post-op diagnosis: 1. Multiple antral ulcers with gastritis 2. Internal hemorrhoids Surgery: Upper endoscopy with biopsy, and Colonoscopy Medications: As per anesthesia. Tissue removed: Antral and gastric body biopsy Procedure: After informed consent obtained from patient, patient's pharynx was sprayed with Hurricane and conscious sedation was achieved. The upper endoscope was then inserted into the esophagus under direct vision and advanced into the stomach and further into the duodenum. Detailed examination of the duodenum, stomach and the esophagus was then performed. A digital rectal examination was performed and this was unremarkable. The colonoscope was inserted into the rectum and advanced to the cecum. The appendiceal orifice and the terminal ileum were both identified. The mucosa was examined into details as the colonoscope was slowly pulled out of the patient. The endoscope was retroflexed in the rectum. Patient tolerated the procedure well. Findings Esophagus: Normal Stomach: Multiple small ulcers noted in the antrum with areas of erythema. Duodenum: Normal Cecum: Normal Ascending colon: Normal Transverse colon: Normal Descending colon: Normal Sigmoid colon: Normal Rectum: Normal except for internal hemorrhoids Plan: Stop ranitidine and start omeprazole 20 mg daily. OPERATION: .
[2020-03-21 15:59] VITALS: BP 104/69
--- NOTE | 2020-04-03 19:13 | PDOC H&P ---
History of Present Illness Admission Date/PCP: 03/21/20 History of Present Illness: LUCY REDDY is a 64 year old male presenting for endoscopy. He has abd pain and constipation Past Medical History Cardiac Medical History: Denies: Coronary Artery Disease, Myocardial Infarction, Hypertension Pulmonary Medical History: Reports: Asthma, Bronchitis - currently on meds diagnosed 10/24/13, Pneumonia Denies: Chronic Obstructive Pulmonary Disease (COPD) Neurological Medical History: Denies: Seizures GI Medical History: Denies: Hepatitis, Hiatal Hernia Musculoskeltal Medical History: Denies: Arthritis Hematology: Denies: Anemia, Sickle Cell Disease Past Surgical History Past Surgical History: Reports: Cardiac Catheterization - stent, Orthopedic Surgery - neck, bulging disc Denies: Pacemaker Social History Smoking Status: Never Smoker Family History Family History: Reviewed & Not Pertinent Parental Family History Reviewed: No Children Family History Reviewed: NA Sibling(s) Family History Reviewed.: NA Medication/Allergy Home Medications: Albuterol Sulfate [Proventil HFA] 2 inh IH Q4 PRN #1 inhaler 01/21/13 Albuterol Sulfate [Albuterol Sulfate 2.5mg/3 mL] 1 vial IH Q4 PRN 10/29/13 Polyethylene Glycol 3350 [Miralax Powder 17 gm/Packet] 1 packet PO DAILY 10/29/13 Acetaminophen with Codeine [Tylenol #3 Tablet] 1 each PO Q4HP PRN 12/07/18 Ciprofloxacin HCl [Cipro 500 mg Tablet] 500 mg PO BID 12/07/18 Difluprednate [Durezol] 1 drop OP ASDIR PRN 12/07/18 Doxycycline Hyclate 100 mg PO BID 12/07/18 Moxifloxacin HCl [Vigamox 0.5% Oph Soln 3 ml] 1 drop OP ASDIR PRN 12/07/18 Nepafenac [Ilevro] 1 drop OP ASDIR PRN 12/07/18 Penicillin V Potassium [Penicillin Vk 500 mg Tablet] 500 mg PO QID PRN 12/07/18 Ranitidine HCl 150 mg PO DAILY 12/07/18 Dicyclomine HCl [Bentyl 20 mg Tablet] 20 mg PO QID PRN #20 tablet 01/25/19 Docusate Sodium [Colace 100 mg Capsule] 100 mg PO ASDIR PRN #30 capsule 01/25/19 Ondansetron [Zofran Odt 4 mg Tablet] 1 - 2 tab PO Q4H PRN #15 tab.rapdis 01/25/19 Allergies/Adverse Reactions: No Known Allergies Allergy (Verified 12/27/18 09:06) Review of Systems All systems: reviewed and no additional remarkable complaints except as stated Physical Exam Vital Signs: Temp Pulse Resp BP Pulse Ox 97.2 F 63 17 104/69 94 03/21/20 15:55 03/21/20 15:55 03/21/20 15:55 03/21/20 15:55 03/21/20 15:55 General appearance: PRESENT: no acute distress Eye exam: PRESENT: EOMI. ABSENT: conjunctival injection Respiratory exam: PRESENT: symmetrical Pulses: PRESENT: normal carotid pulses GI/Abdominal exam: PRESENT: normal bowel sounds Rectal exam: PRESENT: deferred Musculoskeletal exam: PRESENT: ambulatory Neurological exam: PRESENT: alert, awake Assessment & Plan - Time Anticipated Discharge Disposition: Home, Self Care Anticipated Discharge Timeframe: within 24 hours
== END 2020-03-21 17:39 | disposition home or self-care (01) ==
LOC: END 13:35
PROVIDERS: ATTEND Internal Medicine Gastroenterology
DX: K29.50 Unspecified chronic gastritis without bleeding (principal); B96.81 Helicobacter pylori [H. pylori] as the cause of diseases classified elsewhere; K59.00 Constipation, unspecified; K64.8 Other hemorrhoids; J45.909 Unspecified asthma, uncomplicated; Z79.899 Other long term (current) drug therapy; Z03.818 Encounter for observation for suspected exposure to other biological agents ruled out
CPT/HCPCS: 43239; 45378; 88342 ×2; 88305 ×2; 00813; U0003; J2704; C9803; 813; 87635

== ENCOUNTER 2020-06-24 08:01 | Outpatient (CLI) | payer MEDICARE, MEDICAID ==
[~2020-06-24 08:01] MED LIST changes: +ACETAMINOPHEN 325 MG TABLET PO PRN; +DIPHENHYDRAMINE HCL 50 MG in NORMAL SALINE 50 ML IV PRN; +IRON DEXTRAN COMPLEX 25 MG in NORMAL SALINE 100 ML IV PRN; +IRON DEXTRAN COMPLEX 25 MG in SYRINGE, DISPOSABLE, 1 EACH IV PRN; +IRON DEXTRAN COMPLEX 775 MG in NORMAL SALINE 500 ML IV PRN; -KETOROLAC TROMETHAMINE 0.45% 4 DROP/0.4 ML DROPERETTE OD PRN; +NORMAL SALINE 250 ML IV PRN
[2020-06-24 08:46] VITALS: BP 127/81
== END 2020-06-24 14:06 | disposition home or self-care (01) ==
LOC: II 08:01 → 5TH 08:04 → II 14:06
PROVIDERS: ATTEND Internal Medicine
DX: D50.9 Iron deficiency anemia, unspecified (principal); K90.9 Intestinal malabsorption, unspecified
CPT/HCPCS: 96365; 96366; 96367; 96375; A9270; J1200; J1750; J7040; J3490; J7050

== ENCOUNTER 2020-07-01 08:14 | Outpatient (CLI) | payer MEDICARE, MEDICAID ==
[~2020-07-01 08:14] MED LIST changes: +DIPHENHYDRAMINE 50 MG in NS 50 ML IV PRN; -IRON DEXTRAN COMPLEX 25 MG in NORMAL SALINE 100 ML IV PRN; +IRON DEXTRAN COMPLEX 800 MG in NORMAL SALINE 500 ML IV PRN
[2020-07-01 08:38] VITALS: BP 126/80
== END 2020-07-01 13:00 | disposition home or self-care (01) ==
LOC: II 08:14 → 5TH 08:16 → II 13:00
PROVIDERS: ATTEND Internal Medicine
DX: D50.9 Iron deficiency anemia, unspecified (principal); K90.9 Intestinal malabsorption, unspecified
CPT/HCPCS: 96365; 96366; 96367; A9270; J1200; J1750; J7040; J3490